=== PATIENT | female | born 1990 | race Caucasian/White ===

== ENCOUNTER 2019-09-06 11:46 | Emergency (ER) | payer BC, OTHER ==
--- NOTE | 2019-09-06 12:59 | RAD ---
PORTABLE UPRIGHT FRONTAL CHEST RADIOGRAPH: Date: 09/06/2019 COMPARISON: None. HISTORY: Injury, trauma, pain. FINDINGS: Lungs are clear. Heart and mediastinal contours unremarkable. IMPRESSION: No acute findings. POS: [facility]
--- NOTE | 2019-09-06 12:59 | RAD ---
3 VIEWS LEFT SHOULDER: Date: 09/06/2019 HISTORY: Shoulder pain. FINDINGS: There is no widening of the acromioclavicular or coracoclavicular interspace. No displaced fracture o r dislocation. IMPRESSION: No acute findings. POS: [facility]
== END 2019-09-06 13:05 | disposition home or self-care (01) ==
LOC: ERS 11:46
DX: M25.512 Pain in left shoulder (principal); F41.9 Anxiety disorder, unspecified; Z87.891 Personal history of nicotine dependence; V89.2XXA Person injured in unspecified motor-vehicle accident, traffic, initial encounter
CPT/HCPCS: 71045

== ENCOUNTER 2020-09-07 08:37 | Outpatient (CLI) | payer OTHER ==
[2020-09-07] MEDS ORDERED: EPINEPHrine 1 MG/ML AMP ONE (09:50)
[2020-09-07] MEDS ORDERED: Lidocaine 1% PF 10 ML AMP ONE (09:50)
[2020-09-07] MEDS ORDERED: Iopamidol 300 61% 50 ML VIAL FS ONE (09:50)
[2020-09-07] MEDS ORDERED: Gadobenate Dimeglumine 529 MG/1 ML (20ML VIAL) ONE (09:50)
[2020-09-07] MEDS ORDERED: Magnevist 469MG/ML 20 ML VIAL ONE (13:12)
== END 2020-09-07 08:38 | disposition home or self-care (01) ==
LOC: RAD 08:37
PROVIDERS: ATTEND Orthopaedic Surgery
DX: M24.411 Recurrent dislocation, right shoulder (principal)
CPT/HCPCS: 23350; A9577; A9579; J0171; J2001; Q9967

== ENCOUNTER 2021-12-11 15:23 | Outpatient (CLI) | payer BC ==
[2021-12-11 16:17] LABS: BHCG - Serum POSITIVE (NEGATIVE); Pregs Control Background? CLEAR/WHITE (CLR/WHITE); Pregs Control Bar Appear? YES (CONTROL BAR)
== END 2021-12-11 15:24 | disposition home or self-care (01) ==
LOC: RAD 15:23
PROVIDERS: ATTEND Student in an Organized Health Care Education/Training Program
DX: N97.9 Female infertility, unspecified (principal)
CPT/HCPCS: 36415; 84703

== ENCOUNTER 2022-01-09 09:17 | Outpatient (CLI) | payer BC ==
[2022-01-09 10:35] LABS: BHCG - Serum Indeterminate (NEGATIVE); Pregs Control Background? CLEAR/WHITE (CLR/WHITE); Pregs Control Bar Appear? YES (CONTROL BAR)
== END 2022-01-09 09:18 | disposition home or self-care (01) ==
LOC: RAD 09:17
PROVIDERS: ATTEND Student in an Organized Health Care Education/Training Program
DX: Z32.00 Encounter for pregnancy test, result unknown (principal); N97.9 Female infertility, unspecified
CPT/HCPCS: 58340; 74740; 84703